=== PATIENT | female | born 1980 | race American Indian/Alaskan Native ===

== ENCOUNTER 2017-03-28 10:40 | Emergency (ER) | payer SELFPAY ==
[2017-03-28 10:47] VITALS: BP 128/84
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
[2017-03-28] MEDS ORDERED: TYLENOL PO ONE (11:55)
[2017-03-28] MEDS ORDERED: MOTRIN PO ONE (15:20)
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
== END 2017-03-28 16:59 | disposition home or self-care (01) ==
LOC: ED 10:40
DX: S06.0X9A Concussion with loss of consciousness of unspecified duration, initial encounter (principal); E11.9 Type 2 diabetes mellitus without complications; W18.39XA Other fall on same level, initial encounter; Y93.89 Activity, other specified; Y99.8 Other external cause status; Y92.89 Other specified places as the place of occurrence of the external cause
CPT/HCPCS: 70450

== ENCOUNTER 2017-12-06 13:11 | Emergency (ER) | payer SELFPAY ==
--- NOTE | 2017-12-06 16:27 | Emergency Department Report ---
ED Abdominal Pain HPI - General Chief Complaint: Abdominal Pain Stated Complaint: BACK/LOWER ABD PAIN Time Seen by Provider: 12/06/17 15:42 Source: patient Mode of arrival: Ambulatory Limitations: No Limitations - History of Present Illness Initial Comments: This is a 37-year-old female here complaining of left lower abdominal pain 2 days. She is also complaining of lower back pain 7 days. Denies any urinary burning frequency or urgency. Denies any vaginal bleeding or discharge. Last menstrual period was 11/12/2017. She has had similar episode in the past prior to her menses. She is complaining of nausea without vomiting and diarrhea on and off for 7 days that she had one episode of loose stool this morning. Pain is 5-10 and crampy to her left lower quadrant of her abdomen. No alleviating or exacerbating factors and pain is intermittent. Denies any shortness of breath or chest pain. MD Complaint: abdominal pain, other (back pain, nausea and diarrhea) Onset/Timin -: days(s) Location: LLQ Radiation: none Migration to: no migration Severity: moderate Severity scale (0 -10): 5 Quality: cramping Consistency: intermittent Improves With: nothing Worsens With: nothing Context: other (unknown) Associated Symptoms: nausea, diarrhea, other (bilateral lower back pain). denies: vomiting, fever, chills, constipation, dysuria, hematemesis, hematochezia, melena, hematuria, anorexia, syncope Treatments Prior to Arrival: other - Related Data LMP Date: 11/12/17 LMP (females 10-50): unknown Home Medications Medication Instructions Recorded Confirmed Last Taken Cetirizine HCl [Zyrtec] 10 mg PO DAILY 03/19/13 03/19/13 03/18/13 22:00 metFORMIN [Glucophage] 500 mg PO BID 03/19/13 03/19/13 03/18/13 19:00 Previous Rx's Medication Instructions Recorded Last Taken Type Cephalexin [Keflex] 500 mg PO BID #14 capsule 03/19/13 Unknown Rx Acetaminophen/Codeine [Tylenol #3] 1 tab PO Q6H PRN #15 tab 09/02/15 Unknown Rx Dibucaine 1% [Nupercainal] 1 applicatio DC TID #1 tube 09/02/15 Unknown Rx Hydrocortisone [Anucort-HC SUPPOS] 25 mg RC BID #10 supp.rect 09/02/15 Unknown Rx Acetaminophen [Tylenol Arthritis] 650 mg PO Q6HR PRN #30 tablet.er 03/28/17 Unknown Rx Ibuprofen [Motrin] 600 mg PO Q8H PRN #30 tablet 03/28/17 Unknown Rx Ciprofloxacin HCl [Ciprofloxacin 500 mg PO Q12H #20 tab 12/06/17 Unknown Rx TAB] Dicyclomine [Bentyl] 40 mg PO Q8H 3 Days #9 tablet 12/06/17 Unknown Rx Promethazine [Phenergan TAB] 25 mg PO Q6HR PRN #12 tab 12/06/17 Unknown Rx Allergies Allergy/AdvReac Type Severity Reaction Status Date / Time No Known Allergies Allergy Verified 12/06/17 13:34 ED Review of Systems ROS: Stated complaint: BACK/LOWER ABD PAIN Other details as noted in HPI Constitutional: denies: chills, fever Eyes: denies: eye pain, eye discharge, vision change ENT: denies: ear pain, throat pain, congestion Respiratory: denies: cough, shortness of breath, SOB with exertion, SOB at rest , stridor, wheezing Cardiovascular: denies: chest pain, palpitations, edema, syncope Gastrointestinal: abdominal pain, nausea, diarrhea. denies: vomiting, constipation, hematemesis, melena, hematochezia Genitourinary: denies: urgency, dysuria, discharge Musculoskeletal: back pain. denies: joint swelling, arthralgia, myalgia Skin: denies: rash, lesions Neurological: denies: headache, weakness, numbness, paresthesias, confusion, abnormal gait, vertigo ED Past Medical Hx - Past Medical History Previous Medical History?: Yes Hx Diabetes: Yes - Surgical History Past Surgical History?: Yes Additional Surgical History: x 3 - Family History Family history: diabetes, hypertension - Social History Smoking Status: Never Smoker Substance Use Type: None - Medications Home Medications: Home Medications Medication Instructions Recorded Confirmed Last Taken Type Cephalexin [Keflex] 500 mg PO BID #14 capsule 03/19/13 Unknown Rx Cetirizine HCl [Zyrtec] 10 mg PO DAILY 03/19/13 03/19/13 03/18/13 22:00 History metFORMIN [Glucophage] 500 mg PO BID 03/19/13 03/19/13 03/18/13 19:00 History Acetaminophen/Codeine [Tylenol #3] 1 tab PO Q6H PRN #15 tab 09/02/15 Unknown Rx Dibucaine 1% [Nupercainal] 1 applicatio DC TID #1 tube 09/02/15 Unknown Rx Hydrocortisone [Anucort-HC SUPPOS] 25 mg RC BID #10 supp.rect 09/02/15 Unknown Rx Acetaminophen [Tylenol Arthritis] 650 mg PO Q6HR PRN #30 tablet.er 03/28/17 Unknown Rx Ibuprofen [Motrin] 600 mg PO Q8H PRN #30 tablet 03/28/17 Unknown Rx Ciprofloxacin HCl [Ciprofloxacin 500 mg PO Q12H #20 tab 12/06/17 Unknown Rx TAB] Dicyclomine [Bentyl] 40 mg PO Q8H 3 Days #9 tablet 12/06/17 Unknown Rx Promethazine [Phenergan TAB] 25 mg PO Q6HR PRN #12 tab 12/06/17 Unknown Rx ED Physical Exam - General Limitations: No Limitations General appearance: alert, in no apparent distress - Head Head exam: Present: atraumatic, normocephalic, normal inspection - Eye Eye exam: Present: normal appearance, PERRL Pupils: Present: normal accommodation - ENT ENT exam: Present: normal exam, normal orophraynx, mucous membranes moist, TM's normal bilaterally, normal external ear exam - Neck Neck exam: Present: normal inspection, full ROM. Absent: tenderness, lymphadenopathy - Respiratory Respiratory exam: Present: normal lung sounds bilaterally. Absent: respiratory distress, chest wall tenderness - Cardiovascular Cardiovascular Exam: Present: regular rate, normal rhythm, normal heart sounds. Absent: systolic murmur, diastolic murmur - GI/Abdominal GI/Abdominal exam: Present: soft, normal bowel sounds. Absent: distended, tenderness, guarding, rebound, rigid, organomegaly, mass, bruit, pulsatile mass - Extremities Exam Extremities exam: Present: normal inspection, full ROM, normal capillary refill , other (no clubbing, cyanosis or edema. +2 pulses to all extremities and no neurovascular compromise). Absent: tenderness, pedal edema, joint swelling, calf tenderness - Back Exam Back exam: Present: normal inspection, full ROM, other (ambulates without any difficulties). Absent: tenderness, CVA tenderness (R), CVA tenderness (L), muscle spasm, paraspinal tenderness, vertebral tenderness, rash noted - Expanded Back Exam Expanded Back exam: Absent: saddle anesthesia Back exam: Negative Straight Leg Raising: Left, Right - Neurological Exam Neurological exam: Present: alert, oriented X3, normal gait, reflexes normal. Absent: motor sensory deficit - Psychiatric Psychiatric exam: Present: normal affect, normal mood - Skin Skin exam: Present: warm, dry, intact, normal color. Absent: rash ED Course Vital Signs 12/06/17 12/06/17 13:24 18:35 Temperature 98 F 98.6 F Pulse Rate 77 60 Respiratory 18 16 Rate Blood Pressure 138/75 Blood Pressure 126/78 [Left] O2 Sat by Pulse 100 99 Oximetry - Reevaluation(s) Reevaluation #1: 12/06/17 17:30 Patient given Zofran 8 mg ODT and Bentyl 40 mg by mouth for abdominal cramping and nausea. She was started on Levaquin 750 mg by mouth for diarrhea 7 days which is on and off. CBC, CMP, lipase and urinalysis is stable. Hemoglobin is 9.7 which is slightly decreased and hematocrit is normal. urine test is negative. 12/06/17 17:47 Reevaluation #2: 12/06/17 17:47 Oral hydration started and patient tolerating well. Reevaluation #3: 12/06/17 18:07 She tolerated oral liquids well. Her pain has resolved. She is stable. ED Medical Decision Making - Lab Data Result diagrams: 12/06/17 16:38 12/06/17 16:38 Lab Results 12/06/17 12/06/17 12/06/17 Range/Units 16:38 16:38 16:41 WBC 9.3 (4.5-11.0) K/mm3 RBC 5.00 (3.65-5.03) M/mm3 Hgb 9.7 L (10.1-14.3) gm/dl Hct 30.5 (30.3-42.9) % MCV 61 L (79-97) fl MCH 19 L (28-32) pg MCHC 32 (30-34) % RDW 20.7 H (13.2-15.2) % Plt Count 272 (140-440) K/mm3 Lymph % (Auto) 36.1 H (13.4-35.0) % Reeves % (Auto) 6.7 (0.0-7.3) % Eos % (Auto) 2.1 (0.0-4.3) % Baso % (Auto) 0.7 (0.0-1.8) % Lymph # 3.3 (1.2-5.4) K/mm3 Reeves # 0.6 (0.0-0.8) K/mm3 Eos # 0.2 (0.0-0.4) K/mm3 Baso # 0.1 (0.0-0.1) K/mm3 Seg Neutrophils % 54.4 (40.0-70.0) % Seg Neutrophils # 5.0 (1.8-7.7) K/mm3 Sodium 139 (137-145) mmol/L Potassium 3.8 (3.6-5.0) mmol/L Chloride 99.9 (98-107) mmol/L Carbon Dioxide 27 (22-30) mmol/L Anion Gap 16 mmol/L BUN 9 (7-17) mg/dL Creatinine 0.5 L (0.7-1.2) mg/dL Estimated GFR > 60 ml/min BUN/Creatinine Ratio 18 % Glucose 90 (65-100) mg/dL POC Glucose 88 (70-105) Calcium 9.6 (8.4-10.2) mg/dL Total Bilirubin 0.30 (0.1-1.2) mg/dL Direct Bilirubin < 0.2 (0-0.2) mg/dL Indirect Bilirubin 0.1 mg/dL AST 22 (5-40) units/L ALT 15 (7-56) units/L Alkaline Phosphatase 84 (35-129) units/L Total Protein 7.7 (6.3-8.2) g/dL Albumin 4.3 (3.9-5) g/dL Albumin/Globulin Ratio 1.3 % Lipase 26 (13-60) units/L Urine Color (Yellow) Urine Turbidity (Clear) Urine pH (5.0-7.0) Ur Specific Prospect (1.003-1.030) Urine Protein (Negative) mg/dL Urine Glucose (UA) (Negative) mg/dL Urine Ketones (Negative) mg/dL Urine Blood (Negative) Urine Nitrite (Negative) Urine Bilirubin (Negative) Urine Urobilinogen (<2.0) mg/dL Ur Leukocyte Esterase (Negative) Urine WBC (Auto) (0.0-6.0) /HPF Urine RBC (Auto) (0.0-6.0) /HPF Urine Mucus /HPF Urine HCG, Qual (Negative) 12/06/17 Range/Units Unknown WBC (4.5-11.0) K/mm3 RBC (3.65-5.03) M/mm3 Hgb (10.1-14.3) gm/dl Hct (30.3-42.9) % MCV (79-97) fl MCH (28-32) pg MCHC (30-34) % RDW (13.2-15.2) % Plt Count (140-440) K/mm3 Lymph % (Auto) (13.4-35.0) % Reeves % (Auto) (0.0-7.3) % Eos % (Auto) (0.0-4.3) % Baso % (Auto) (0.0-1.8) % Lymph # (1.2-5.4) K/mm3 Reeves # (0.0-0.8) K/mm3 Eos # (0.0-0.4) K/mm3 Baso # (0.0-0.1) K/mm3 Seg Neutrophils % (40.0-70.0) % Seg Neutrophils # (1.8-7.7) K/mm3 Sodium (137-145) mmol/L Potassium (3.6-5.0) mmol/L Chloride (98-107) mmol/L Carbon Dioxide (22-30) mmol/L Anion Gap mmol/L BUN (7-17) mg/dL Creatinine (0.7-1.2) mg/dL Estimated GFR ml/min BUN/Creatinine Ratio % Glucose (65-100) mg/dL POC Glucose (70-105) Calcium (8.4-10.2) mg/dL Total Bilirubin (0.1-1.2) mg/dL Direct Bilirubin (0-0.2) mg/dL Indirect Bilirubin mg/dL AST (5-40) units/L ALT (7-56) units/L Alkaline Phosphatase (35-129) units/L Total Protein (6.3-8.2) g/dL Albumin (3.9-5) g/dL Albumin/Globulin Ratio % Lipase (13-60) units/L Urine Color Yellow (Yellow) Urine Turbidity Clear (Clear) Urine pH 5.0 (5.0-7.0) Ur Specific Prospect 1.012 (1.003-1.030) Urine Protein <15 mg/dl (Negative) mg/dL Urine Glucose (UA) Neg (Negative) mg/dL Urine Ketones Neg (Negative) mg/dL Urine Blood Neg (Negative) Urine Nitrite Neg (Negative) Urine Bilirubin Neg (Negative) Urine Urobilinogen < 2.0 (<2.0) mg/dL Ur Leukocyte Esterase Neg (Negative) Urine WBC (Auto) < 1.0 (0.0-6.0) /HPF Urine RBC (Auto) 1.0 (0.0-6.0) /HPF Urine Mucus 1+ /HPF Urine HCG, Qual Negative (Negative) - Medical Decision Making This is a 37-year-old female here report that she has nausea, left lower quadrant abdominal pain, bilateral lower back pain without any fever. She is also reporting that she has diarrhea on and off for 7 days last one was today which was loose. Denies any blood in her stool. Denies any vomiting or throwing up blood. Patient had similar episode in the past and she says she is due to have her menstrual cycle soon. She is here to be evaluated. I saw and examined patient. Physical finances for normal abdominal exam, normal back exam. She was orally challenged emergency room and tolerated 3 cups of juice without any nausea or diarrhea. CBC, CMP, lipase and urinalysis stable. test is negative. Patient is diabetic and her blood glucose was stable. I discussed the patient with diagnosis and laboratory results along with tests and she voices understanding. She is requesting to be referred to primary care and also to [facility]. Pain is controlled in emergency room with medication. Nausea is controlled Abdominal pain, left lower quadrant nonretractable-patient given until 40 mg by mouth and will be sent home on Bentyl Nausea alone-patient given Zofran 8 mg ODT with relief of nausea and will be sent home on and phenergan Diarrhea, episodic-patient will be sent home on ciprofloxacin and she is been having intermittent diarrhea over 7 days. levaquin 750 mg started po in ED Bilateral lower back pain-no pain at present Referral to [facility] for primary care PERRL to [facility] for [facility] and also Dr. Ramos. Patient educated on diagnosis, treatment plan, medication and need to follow- up. She voiced understanding Pt discharged home with prescription for Bentyl, Phenergan and ciprofloxacin I discussed with her that she needs to increase her fluid intake to 2-3 L of liquid to include water and natural juices and avoid carbonated beverages and coffee for 72 hours. I also instructed her to start off with a bland diet to include bananas, rice, applesauce and toast over the next 72 hours and avoid spicy food. Understanding. She is discharged home in stable condition, vital signs are stable she is a febrile. Pain is better in her back and abdomen and she hasn't had any episode of diarrhea in emergency room. I discussed with her if her abdominal pain returns, nausea and vomiting, fever and/or chills, weakness, dizziness to return to the emergency room NOEMÍ. Critical care attestation.: If time is entered above; I have spent that time in minutes in the direct care of this critically ill patient, excluding procedure time. ED Disposition Clinical Impression: Nausea Abdominal pain Qualifiers: Abdominal location: unspecified location Qualified Code(s): R10.9 - Unspecified abdominal pain Diarrhea Qualifiers: Diarrhea type: unspecified type Qualified Code(s): R19.7 - Diarrhea, unspecified Back pain Qualifiers: Back pain location: low back pain Chronicity: acute Back pain laterality: bilateral Sciatica presence: without sciatica Qualified Code(s): M54.5 - Low back pain Disposition: - TO HOME OR SELFCARE Is pt being admited?: No Does the pt Need Aspirin: No Condition: Stable Instructions: Acute Nausea and Vomiting (ED), Acute Diarrhea (ED), Acute Low Back Pain (ED), Abdominal Pain (ED), Nutrition Tips for Relief of Diarrhea (ED) , Core Strengthening Exercises (GEN) Additional Instructions: follow up with [facility] as instructed. This will be Dr. Ramos and she can also follow up at [facility] at [facility]. He can follow up with primary care physician at [facility]. Call tomorrow to schedule an appointment Follow up bland diet such as bananas, rice, applesauce and toast for the next 72 hours and avoid caffeinated beverages and spicy food to allow use stomach lining to heal He experience abdominal pain, back pain, fever and/or chills or nausea or vomiting, dizziness, continuous diarrhea for more than 10 per day, weakness please return to the emergency room Take ciprofloxacin for diarrhea that's been ongoing for 7 days and increase her fluid intake to 2-3 L of water and natural juices daily Phenergan for nausea can cause drowsiness so please do not drive or operate heavy machinery while taking this medication Prescriptions: Ciprofloxacin HCl [Ciprofloxacin TAB] 500 mg PO Q12H #20 tab Dicyclomine [Bentyl] 40 mg PO Q8H 3 Days #9 tablet Promethazine [Phenergan TAB] 25 mg PO Q6HR PRN #12 tab PRN Reason: Nausea Referrals: PRIMARY CAREMD [Primary Care Provider] - 12/09/17 TOM TERAN MD [Staff Physician] - 12/09/17 [facility] [Outside] - 12/09/17 Forms: Work/School Release Form(ED)
[2017-12-06] MEDS ORDERED: ZOFRAN ODT PO ONE (16:32)
[2017-12-06 16:59] LABS: Basophils # (Auto) 0.1 K/mm3 (0.0-0.1); Basophils % (Auto) 0.7 % (0.0-1.8); Eosinophils # (Auto) 0.2 K/mm3 (0.0-0.4); Eosinophils % (Auto) 2.1 % (0.0-4.3); Hematocrit 30.5 % (30.3-42.9); Hemoglobin 9.7 gm/dl (10.1-14.3); Lymphocytes # (Auto) 3.3 K/mm3 (1.2-5.4); Lymphocytes % (Auto) 36.1 % (13.4-35.0); Mean Corpuscular HGB Conc 32 % (30-34); Monocytes # (Auto) 0.6 K/mm3 (0.0-0.8); Monocytes % (Auto) 6.7 % (0.0-7.3); Platelet Count 272 K/mm3 (140-440)
[2017-12-06 17:00] LABS: Mean Corpuscular Hemoglobin 19 pg (28-32); Mean Corpuscular Volume 61 fl (79-97); Red Cell Distribution Width 20.7 % (13.2-15.2)
[2017-12-06] MEDS ORDERED: BENTYL PO ONE (17:00)
[2017-12-06 17:19] LABS: Alanine Aminotransferase 15 units/L (7-56); Albumin 4.3 g/dL (3.9-5); BUN/Creatinine Ratio 18; Blood Urea Nitrogen 9 mg/dL (7-17); Calcium 9.6 mg/dL (8.4-10.2); Hemolysis Index 1; Lipase 26 units/L (13-60)
[2017-12-06 17:22] LABS: Bilirubin,Urine NEG (Negative); Blood,Urine NEG (Negative); Color,Urine Yellow (Yellow); Mucus,Urine 1+ /HPF; Protein,Urine <15 mg/dL mg/dL (Negative); Urobilinogen,Urine < 2.0 mg/dL (<2.0)
[2017-12-06 17:24] LABS: HCG Qualitative,Urine Negative (Negative); WBC,Urine < 1.0 /HPF (0.0-6.0)
[2017-12-06 17:29] LABS: Bilirubin,Direct < 0.2 mg/dL (0-0.2)
[2017-12-06] MEDS ORDERED: LEVAQUIN PO ONE (17:35)
[2017-12-06 18:37] VITALS: BP 126/78
== END 2017-12-06 18:35 | disposition home or self-care (01) ==
LOC: ED 13:11
DX: R10.32 Left lower quadrant pain (principal); R11.0 Nausea; R19.7 Diarrhea, unspecified; M54.5 Low back pain; E11.9 Type 2 diabetes mellitus without complications; Z79.899 Other long term (current) drug therapy
CPT/HCPCS: 36415; 80048; 80074; 81001; 81025; 82962; 83690; 85025; 99283; Q0162

== ENCOUNTER 2018-07-18 12:53 | Observation (INO) | payer MEDICAID ==
[2018-07-18] MEDS ORDERED: NACL 0.9% 1000 ML 1,000 ML IV ONE (13:11)
--- NOTE | 2018-07-18 13:15 | Emergency Department Report ---
Blank Doc - Documentation Documentation: 38 y o female presents for bright red blood in stool today, having abd pain went to pcp was sent to ER for fecal impaction was sent by DR Lopez This initial assessment diagnostic orders/clinical plan/treatment (s) is/Are subject change based on patient's health status, clinical progression and re- assessment by fellow clinical providers in the ED. Further treatment and work-up at subsequent clinical providers discretion. Patient/guardians urged not to elope from their condition may be serious if not clinically assessed and managed. Initial order include: labs ct scan MAin ED evaluate
[2018-07-18 13:48] LABS: Basophils % (Auto) 0.2 % (0.0-1.8); Eosinophils % (Auto) 0.1 % (0.0-4.3); Hematocrit 28.5 % (30.3-42.9); Hemoglobin 9.2 gm/dl (10.1-14.3); Lymphocytes # (Auto) 1.1 K/mm3 (1.2-5.4); Lymphocytes % (Auto) 17.3 % (13.4-35.0); Mean Corpuscular HGB Conc 32 % (30-34); Mean Corpuscular Volume 60 fl (79-97); Monocytes # (Auto) 0.6 K/mm3 (0.0-0.8); Monocytes % (Auto) 8.7 % (0.0-7.3); Platelet Count 251 K/mm3 (140-440); Red Blood Count 4.78 M/mm3 (3.65-5.03)
[2018-07-18 13:49] LABS: Red Cell Distribution Width 20.3 % (13.2-15.2)
[2018-07-18 14:33] LABS: BUN/Creatinine Ratio 14; Blood Urea Nitrogen 7 mg/dL (7-17); Calcium 9.2 mg/dL (8.4-10.2); Hemolysis Index 1
[2018-07-18 14:37] LABS: Bilirubin,Urine NEG (Negative); Blood,Urine LG (Negative); Color,Urine Straw (Yellow); Mucus,Urine FEW /HPF; Protein,Urine <15 mg/dL mg/dL (Negative); Urobilinogen,Urine < 2.0 mg/dL (<2.0); WBC,Urine < 1.0 /HPF (0.0-6.0)
--- NOTE | 2018-07-18 14:50 | Cat Scan Report ---
CT ABDOMEN AND PELVIS WITHOUT CONTRAST INDICATION: Abdominal pain. COMPARISON: None similar. FINDINGS: Noncontrast abdomen and pelvis CT performed. LUNG BASES: Nonspecific distal esophageal wall mild prominence/thickening, not excluded for gastroesophageal reflux and/or hiatal hernia, amongst others. ABDOMEN: Please note that sensitivity to detect small visceral lesions is limited due to the absence of intravenous or oral contrast. However, grossly unremarkable unenhanced liver, spleen, gallbladder, pancreas, adrenals, aorta, IVC and kidneys. No ascites or definite size significant adenopathy, though slight nonspecific swirling at the mesenteric root may be noted as on axial series 2, images 90-105. Nonopacified GI tract evaluation limited, though grossly nonobstructive. Mild colonic stool. Small fat containing umbilical/supraumbilical hernia with a transverse neck of approximately 1.7 cm on axial image 143, series 2. PELVIS: Right lower quadrant demonstrates asymmetric soft tissue rising from the pelvis, predominantly representing the uterus, though with an adjacent 6.6 x 2.8 cm suspected dermoid containing approximately 3 cm eccentric fat as on axial image 136, series 2, amongst others. Left adnexa/ovary appears grossly unremarkable as also non-opacified urinary bladder. Few small pelvic phleboliths. Moderate rectosigmoid stool/impaction noted. No significant free fluid or definite adenopathy. Mild multilevel spinal degenerative changes as lower thoracic spurring and multilevel endplate irregularities. Bilateral SI joint degenerative changes with some sclerosis along iliac aspect on the right also noted. CONCLUSION: Right adnexal/ovarian dermoid in this patient with various other incidental findings on this limited, unenhanced exam, including possible constipation, as described. Please correlate. Thank you for the opportunity to participate in this patient's care.
[2018-07-18] MEDS ORDERED: DILAUDID IV ONE (14:58)
[2018-07-18] MEDS ORDERED: TORADOL IV ONE (14:58)
[2018-07-18] MEDS ORDERED: LIDOCAINE VISCOUS 2% PO ONE (14:58)
--- NOTE | 2018-07-18 15:01 | Emergency Department Report ---
ED General Adult HPI - General Chief complaint: Abdominal Pain Stated complaint: REFERRED BY BODY PAIN/SORE THROAT Time Seen by Provider: 07/18/18 13:07 Source: patient, RN notes reviewed, old records reviewed Mode of arrival: Ambulatory Limitations: No Limitations - History of Present Illness Initial comments: Primary care Dr.: Dr. Eder Trevino Past medical history: Obesity, diabetes This is a 38-year-old female. The patient presents to the emergency room with 2 complaints. The patient's first complaint is sore throat, body aches, headache, malaise, fatigue, myalgias, generalized weakness. Dry cough, positive subjective fever. Symptoms present for 4-5 days. They're intermittent. They do not radiate anywhere. They do not have exacerbating or relieving factors. The patient's second complaint is abdominal cramping and constipation. She reports straining so hard she defecates she had some blood come from her rectum. She denies dysuria, hematuria. She does report that she is currently menstruating. However, this is not one of her complaints. -: Gradual Location: mouth, neck, back, abdomen, left, right, upper extremity, lower extremity Radiation: non-radiation Severity scale (0 -10): 6 Quality: aching Improves with: other Worsens with: other Associated Symptoms: cough, fever/chills, headaches, loss of appetite, malaise, weakness, other (see history of present illness). denies: confusion, chest pain, diaphoresis, shortness of breath, syncope - Related Data Home Medications Medication Instructions Recorded Confirmed Last Taken Cetirizine HCl [Zyrtec] 10 mg PO DAILY 03/19/13 03/19/13 03/18/13 22:00 metFORMIN [Glucophage] 500 mg PO BID 03/19/13 03/19/13 03/18/13 19:00 Previous Rx's Medication Instructions Recorded Last Taken Type cephALEXin [Keflex] 500 mg PO BID #14 capsule 03/19/13 Unknown Rx Acetaminophen/Codeine [Tylenol #3] 1 tab PO Q6H PRN #15 tab 09/02/15 Unknown Rx Dibucaine 1% [Nupercainal] 1 applicatio [place] TID #1 tube 09/02/15 Unknown Rx Hydrocortisone [Anucort-HC SUPPOS] 25 mg RC BID #10 supp.rect 09/02/15 Unknown Rx Acetaminophen [Tylenol Arthritis] 650 mg PO Q6HR PRN #30 tablet.er 03/28/17 Unknown Rx Ibuprofen [Motrin] 600 mg PO Q8H PRN #30 tablet 03/28/17 Unknown Rx Ciprofloxacin HCl [Ciprofloxacin 500 mg PO Q12H #20 tab 12/06/17 Unknown Rx TAB] Dicyclomine [Bentyl] 40 mg PO Q8H 3 Days #9 tablet 12/06/17 Unknown Rx Promethazine [Phenergan TAB] 25 mg PO Q6HR PRN #12 tab 12/06/17 Unknown Rx Acetaminophen [Tylenol Arthritis] 650 mg PO Q6HR PRN #30 tablet.er 07/18/18 Unknown Rx Ibuprofen [Motrin] 600 mg PO Q8H PRN #30 tablet 07/18/18 Unknown Rx Ondansetron [Zofran Odt] 4 mg PO Q8HR PRN #20 tab.rapdis 07/18/18 Unknown Rx Polyethylene Glycol 3350 [Miralax 17 gm PO QDAY #30 packet 07/18/18 Unknown Rx 3350] Allergies Allergy/AdvReac Type Severity Reaction Status Date / Time morphine Allergy Rash Verified 07/18/18 12:58 ED Review of Systems ROS: Stated complaint: REFERRED BY BODY PAIN/SORE THROAT Other details as noted in HPI Constitutional: chills, fever, malaise Eyes: denies: vision change ENT: throat pain. denies: epistaxis Respiratory: cough Cardiovascular: denies: chest pain Gastrointestinal: constipation, hematochezia. denies: hematemesis Genitourinary: other (patient currently menstruating, but this is not a s ymptom). denies: dysuria Musculoskeletal: back pain, arthralgia, myalgia Skin: denies: lesions Neurological: weakness Psychiatric: anxiety ED Past Medical Hx - Past Medical History Hx Diabetes: Yes - Surgical History Additional Surgical History: x 3 - Social History Smoking Status: Never Smoker Substance Use Type: None - Medications Home Medications: Home Medications Medication Instructions Recorded Confirmed Last Taken Type Cetirizine HCl [Zyrtec] 10 mg PO DAILY 03/19/13 03/19/13 03/18/13 22:00 History cephALEXin [Keflex] 500 mg PO BID #14 capsule 03/19/13 Unknown Rx metFORMIN [Glucophage] 500 mg PO BID 03/19/13 03/19/13 03/18/13 19:00 History Acetaminophen/Codeine [Tylenol #3] 1 tab PO Q6H PRN #15 tab 09/02/15 Unknown Rx Dibucaine 1% [Nupercainal] 1 applicatio [place] TID #1 tube 09/02/15 Unknown Rx Hydrocortisone [Anucort-HC SUPPOS] 25 mg RC BID #10 supp.rect 09/02/15 Unknown Rx Acetaminophen [Tylenol Arthritis] 650 mg PO Q6HR PRN #30 tablet.er 03/28/17 Unknown Rx Ibuprofen [Motrin] 600 mg PO Q8H PRN #30 tablet 03/28/17 Unknown Rx Ciprofloxacin HCl [Ciprofloxacin 500 mg PO Q12H #20 tab 12/06/17 Unknown Rx TAB] Dicyclomine [Bentyl] 40 mg PO Q8H 3 Days #9 tablet 12/06/17 Unknown Rx Promethazine [Phenergan TAB] 25 mg PO Q6HR PRN #12 tab 12/06/17 Unknown Rx Acetaminophen [Tylenol Arthritis] 650 mg PO Q6HR PRN #30 tablet.er 07/18/18 Unknown Rx Ibuprofen [Motrin] 600 mg PO Q8H PRN #30 tablet 07/18/18 Unknown Rx Ondansetron [Zofran Odt] 4 mg PO Q8HR PRN #20 tab.rapdis 07/18/18 Unknown Rx Polyethylene Glycol 3350 [Miralax 17 gm PO QDAY #30 packet 07/18/18 Unknown Rx 3350] ED Physical Exam - General Limitations: No Limitations General appearance: alert, in distress, obese - Head Head exam: Present: atraumatic, normocephalic - Eye Eye exam: Present: normal appearance, EOMI. Absent: conjunctival injection - ENT ENT exam: Present: mucous membranes moist, normal external ear exam, other (when exudates noted on tonsillar pillars). Absent: normal orophraynx - Neck Neck exam: Present: normal inspection, full ROM, lymphadenopathy. Absent: tenderness, meningismus - Respiratory Respiratory exam: Present: normal lung sounds bilaterally. Absent: respiratory distress - Cardiovascular Cardiovascular Exam: Present: normal rhythm, tachycardia, normal heart sounds. Absent: systolic murmur, diastolic murmur, rubs, gallop - GI/Abdominal GI/Abdominal exam: Present: soft. Absent: distended, tenderness, guarding, rebound, rigid, pulsatile mass - Rectal Rectal exam: Present: normal inspection, normal rectal tone, heme (+) stool, fecal impaction, other (Brown stool, trace guaiac positive, chaperoned by nurse John burch) - Extremities Exam Extremities exam: Present: normal inspection, full ROM, other (2+ pulses noted in the bilateral upper, lower extremities. Compartments soft. No long bony tenderness. The pelvis is stable.). Absent: pedal edema, joint swelling, calf tenderness - Back Exam Back exam: Present: normal inspection, full ROM. Absent: tenderness, CVA tenderness (R), paraspinal tenderness, vertebral tenderness - Neurological Exam Neurological exam: Present: alert, oriented X3, CN II-XII intact, normal gait, other (Extraocular movements intact. Tongue midline. No facial droop. Facial sensation intact to light touch in the V1, V2, V3 distribution bilaterally. 5 and 5 strength in 4 extremities.. Sensation is intact to light touch in 4 extr emities.). Absent: motor sensory deficit - Psychiatric Psychiatric exam: Present: anxious - Skin Skin exam: Present: warm, dry, intact, normal color. Absent: rash ED Course Vital Signs 07/18/18 07/18/18 07/18/18 13:09 15:22 15:26 Temperature 98.2 F Pulse Rate 114 H Respiratory 20 18 18 Rate Blood Pressure 133/87 O2 Sat by Pulse 99 Oximetry - Reevaluation(s) Reevaluation #1: 07/18/18 16:11 Differential diagnosis, including not limited to: Influenza, influenza-like illness, viral pharyngitis, strep pharyngitis, constipation, fecal impaction Assessment and plan: 38-year-old female with 2 complaints. Complaint #1, viral syndrome, present 4-5 days, does not have any significant medical comorbidities, not hypoxic, no utility at this point for Tamiflu, moderate risk by [facility] criteria, we will treat her symptoms symptomatically and supportively, and obtain a strep screen. Patient protecting her airway at this time, with no stridor or dysphonia. Complaint #2: Constipation; confirmed on CT scan, confirmed on physical examination, likely fecal impaction. We will treat her pain, she reports only itching to morphine, but no true anaphylaxis or anaphylactoid symptoms, and nursing team is going to perform a soapsuds enema. We will reassess after her initial data points. Reevaluation #2: 07/18/18 18:32 Soap suds enema not successful. Patient endorsed passing some fluid, and some bloody flatus, but was unable to have a bowel movement. Manual disimpaction was attempted during her initial physical exam, and was not successful. Lactulose ordered, GoLYTELY ordered. Discussed with gastroenterology, Dr. Tarango, who agreed with the aforementioned, and indicated his group could follow in consultation. Patient will be admitted to the medical service for further management. Dr Maldonado accepts to his service ED Medical Decision Making - Lab Data Result diagrams: 07/18/18 13:27 07/18/18 13:32 Vital Signs 07/18/18 07/18/18 07/18/18 13:09 15:22 15:26 Temperature 98.2 F Pulse Rate 114 H Respiratory 20 18 18 Rate Blood Pressure 133/87 O2 Sat by Pulse 99 Oximetry Labs 07/18/18 07/18/18 07/18/18 13:27 13:27 13:27 WBC 6.4 RBC 4.78 Hgb 9.2 L Hct 28.5 L MCV 60 L MCH 19 L MCHC 32 RDW 20.3 H Plt Count 251 Lymph % (Auto) 17.3 [place] % (Auto) 8.7 H Eos % (Auto) 0.1 Baso % (Auto) 0.2 Lymph # 1.1 L [place] # 0.6 Eos # 0.0 Baso # 0.0 Seg Neutrophils % 73.7 H Seg Neutrophils # 4.7 PT 13.8 INR 1.00 Sodium Potassium Chloride Carbon Dioxide Anion Gap BUN Creatinine Estimated GFR BUN/Creatinine Ratio Glucose Lactic Acid Calcium Magnesium Total Creatine Kinase HCG, Qual Negative Urine Color Urine Turbidity Urine pH Ur Specific [place] Urine Protein Urine Glucose (UA) Urine Ketones Urine Blood Urine Nitrite Urine Bilirubin Urine Urobilinogen Ur Leukocyte Esterase Urine WBC (Auto) Urine RBC (Auto) Urine Mucus Blood Type Antibody Screen 07/18/18 07/18/18 07/18/18 13:27 13:27 13:32 WBC RBC Hgb Hct MCV MCH MCHC RDW Plt Count Lymph % (Auto) [place] % (Auto) Eos % (Auto) Baso % (Auto) Lymph # [place] # Eos # Baso # Seg Neutrophils % Seg Neutrophils # PT INR Sodium 141 Potassium 3.9 Chloride 100.8 Carbon Dioxide 27 Anion Gap 17 BUN 7 Creatinine 0.5 L Estimated GFR > 60 BUN/Creatinine Ratio 14 Glucose 142 H Lactic Acid 1.20 Calcium 9.2 Magnesium Total Creatine Kinase HCG, Qual Urine Color Urine Turbidity Urine pH Ur Specific [place] Urine Protein Urine Glucose (UA) Urine Ketones Urine Blood Urine Nitrite Urine Bilirubin Urine Urobilinogen Ur Leukocyte Esterase Urine WBC (Auto) Urine RBC (Auto) Urine Mucus Blood Type A POSITIVE Antibody Screen Negative 07/18/18 07/18/18 13:32 14:02 WBC RBC Hgb Hct MCV MCH MCHC RDW Plt Count Lymph % (Auto) [place] % (Auto) Eos % (Auto) Baso % (Auto) Lymph # [place] # Eos # Baso # Seg Neutrophils % Seg Neutrophils # PT INR Sodium Potassium Chloride Carbon Dioxide Anion Gap BUN Creatinine Estimated GFR BUN/Creatinine Ratio Glucose Lactic Acid Calcium Magnesium 1.80 Total Creatine Kinase 102 HCG, Qual Urine Color Straw Urine Turbidity Clear Urine pH 7.0 Ur Specific [place] 1.003 Urine Protein <15 mg/dl Urine Glucose (UA) Neg Urine Ketones Neg Urine Blood Lg Urine Nitrite Neg Urine Bilirubin Neg Urine Urobilinogen < 2.0 Ur Leukocyte Esterase Neg Urine WBC (Auto) < 1.0 Urine RBC (Auto) 6.0 Urine Mucus Few Blood Type Antibody Screen - Radiology Data Radiology results: report reviewed, image reviewed Referring Physician: ANNE BLAKE Patient Name: ALEXANDRA RIZO Date of : 1980 Sex: Female Report Date: 2018-07-18 Report Status: Finalized [address] [address] Cat Scan Report Signed Patient: ALEXANDRA RIZO MR#: [id number] : 1980 Acct:[id number] Age/Sex: 38 / F ADM Date: 07/18/18 Loc: ED Attending Dr: Ordering Physician: KARY SMITH Date of Service: 07/18/18 Procedure(s): CT abdomen pelvis wo con Accession Number(s): [id number] cc: KARY SMITH CT ABDOMEN AND PELVIS WITHOUT CONTRAST INDICATION: Abdominal pain. COMPARISON: None similar. FINDINGS: Noncontrast abdomen and pelvis CT performed. LUNG BASES: Nonspecific distal esophageal wall mild prominence/thickening, not excluded for gastroesophageal reflux and/or hiatal hernia, amongst others. ABDOMEN: Please note that sensitivity to detect small visceral lesions is limited due to the absence of intravenous or oral contrast. However, grossly unremarkable unenhanced liver, spleen, gallbladder, pancreas, adrenals, aorta, IVC and kidneys. No ascites or definite size significant adenopathy, though slight nonspecific swirling at the mesenteric root may be noted as on axial series 2, images 90-105. Nonopacified GI tract evaluation limited, though grossly nonobstructive. Mild colonic stool. Small fat containing umbilica l/supraumbilical hernia with a transverse neck of approximately 1.7 cm on axial image 143, series 2. PELVIS: Right lower quadrant demonstrates asymmetric soft tissue rising from the pelvis, predominantly representing the uterus, though with an adjacent 6.6 x 2.8 cm suspected dermoid containing approximately 3 cm eccentric fat as on axial image 136, series 2, amongst others. Left adnexa/ovary appears grossly unremarkable as also non-opacified urinary bladder. Few small pelvic phleboliths. Moderate rectosigmoid stool/impaction noted. No significant free fluid or definite adenopathy. Mild multilevel spinal degenerative changes as lower thoracic spurring and multilevel endplate irregularities. Bilateral SI joint degenerative changes with some sclerosis along iliac aspect on the right also noted. CONCLUSION: Right adnexal/ovarian dermoid in this patient with various other incidental findings on this limited, unenhanced exam, including possible constipation, as described. Please correlate. Thank you for the opportunity to participate in this patient's care. Transcribed By: RS Dictated By: VANESA ROBERTS MD Electronically Authenticated By: VANESA ROBERTS MD Signed Date/Time: 07/18/181449 DD/ 37 TD/TT: 07/18/18 145 Critical care attestation.: If time is entered above; I have spent that time in minutes in the direct care of this critically ill patient, excluding procedure time. ED Disposition Clinical Impression: Pharyngitis, Fecal impaction Disposition: OP ADMIT IP TO THIS HOSP Is pt being admited?: Yes Condition: Good Instructions: Constipation (ED), Pharyngitis (ED), High Fiber Diet (ED) Additional Instructions: Cultures were sent today, and results will be available in the next 3-5 days. Please have a primary care doctor contact the medical records department to obtain culture results. Increased consumption of water to 6-8 cups of water per day, and eat plenty of fruits, fibers, vegetables. Take the nausea medication as needed, constipation medication as directed, and follow up with the primary care doctor, or litigation examiner for constipation, fecal impaction, reported lower GI bleeding, within the next month. Return to the emergency room right away with new pain, worsened pain, migration of pain, projectile vomiting, change in mental status, confusion, inability to tolerate liquid feeds, inability to speak, it, worsened or different symptoms. Prescriptions: Acetaminophen [Tylenol Arthritis] 650 mg PO Q6HR PRN #30 tablet.er PRN Reason: Pain Ibuprofen [Motrin] 600 mg PO Q8H PRN #30 tablet PRN Reason: Pain Ondansetron [Zofran Odt] 4 mg PO Q8HR PRN #20 tab.rapdis PRN Reason: Nausea Polyethylene Glycol 3350 [Miralax 3350] 17 gm PO QDAY #30 packet Referrals: [facility] [Provider Group] - 3-5 Days [facility] [Provider Group] - 3-5 Days
[2018-07-18] MEDS ORDERED: CEPHULAC PR STA (18:15)
[2018-07-18] MEDS ORDERED: SUBLIMAZE IV ONE (18:39)
[2018-07-18] MEDS ORDERED: GOLYTELY PO ONE (20:00)
[2018-07-18] MEDS ORDERED: SUBLIMAZE ONE (21:10)
[2018-07-19] MEDS ORDERED: NON-FORMULARY (Acetaminophen [Tylenol Arthritis] 650 MG) PO PRN (00:19)
[2018-07-19] MEDS ORDERED: TYLENOL PO PRN (00:29)
[2018-07-19] MEDS: BENTYL PO SCH ×3 (01:00→17:15)
--- NOTE | 2018-07-19 07:26 | Event Note ---
Date: 07/18/18 See dictated H/p inreports Severe constipation
--- NOTE | 2018-07-19 08:51 | History and Physical Report ---
CHIEF COMPLAINT: Has severe abdominal pain for 2 days. HISTORY OF PRESENT ILLNESS: A 38-year-old -[place] female, who comes in for severe abdominal pain. The patient attributes to severe constipation and slight blood from her rectum when she was trying to defecate hard. The patient is also menstruating currently. The patient is on codeine for back pain, which may be causing her constipation. PAST MEDICAL HISTORY: Significant for diabetes. PAST SURGICAL HISTORY: x 3. SOCIAL HISTORY: Does not smoke. FAMILY HISTORY: Hypertension. CURRENT MEDICATIONS: Metformin 500 b.i.d., Tylenol with codeine t.i.d. #3. The patient is also on MiraLax once a day. REVIEW OF SYSTEMS: Significant for abdominal cramping and severe constipation. Otherwise, review of systems is negative. PHYSICAL EXAMINATION: GENERAL: Young female, cooperative during examination. VITAL SIGNS: Blood pressure is 123/73, temperature is 98.3, pulse 83, respirations 18. Sats are 99%. HEENT: Unremarkable. Pupils equal and reactive. NECK: Supple, no lymphadenopathy, no thyromegaly. LUNGS: Clear to auscultation and percussion. Good air entry. CARDIOVASCULAR: S1, S2 heard. No gallop, no murmur, no rub. Apical impulse in left fifth intercostal space and midclavicular line. ABDOMEN: Soft and benign. No hepatosplenomegaly. No guarding, no rigidity. Hernial orifices are normal. EXTREMITIES: Good pedal pulses. No pedal edema. CENTRAL NERVOUS SYSTEM: Alert and oriented x 4, nonfocal exam. SKIN: Normal. LABORATORY DATA: Abdominal CAT scan shows ovarian dermoid and constipation. Labs are significant for white count of 6400, H and H of 9.2 and 28.5, platelet count of 251,000. Electrolytes are normal. Glucose is 142. Urine is normal. ASSESSMENT AND PLAN: 1. Severe constipation. The patient was given multiple laxatives including lactulose with no results. We will observe for overnight and the send her for Gastrografin enema if she does not have any results. GI consult requested. 2. Type 2 diabetes. Continue coverage and metformin. 3. Chronic pain. We will hold the Tylenol with codeine. 4. Deep venous thrombosis prophylaxis, Lovenox 40 mg subcutaneous daily and gastrointestinal prophylaxis. JOB# [id number] RUTHIE/VICKEY KEYS
[2018-07-19] MEDS: HumaLOG SUB-Q SCH ×3 (10:26→17:15)
[2018-07-19] MEDS: MIRALAX 3350 PO SCH ×2 (10:29→15:32)
--- NOTE | 2018-07-19 10:33 | Gastroenterology Consultation ---
History of Present Illness - Reason for Consult Consult date: 07/19/18 Fecal impaction Requesting physician: IRAIS SALINAS - History of Present Illness Ms Grover is a 38 yo aaf who presents with URI and abdominal pain/constipation. pt reports having URI for the past 1 week. She initially took ibuprofen but then was prescribed percocet due to throat pain for which she was taking for 3 days prior to arrival. She presented with constipation and abdominal cramping and found to have fecal impaction in ED. Manual disimpaction was unsuccessful by ED attending and pt was admitted for further management. Pt denies prior h/o constipation until recent episode after taking pain meds. NO known family h/o colon cancer and denies gi bleeding. Past History Past Medical History: No medical history Past Surgical History: No surgical history Social history: no significant social history Family history: no significant family history Medications and Allergies Allergies Allergy/AdvReac Type Severity Reaction Status Date / Time morphine Allergy Rash Verified 07/18/18 12:58 Home Medications Medication Instructions Recorded Confirmed Last Taken Type Cetirizine HCl [Zyrtec] 10 mg PO DAILY 03/19/13 03/19/13 03/18/13 22:00 History cephALEXin [Keflex] 500 mg PO BID #14 capsule 03/19/13 Unknown Rx metFORMIN [Glucophage] 500 mg PO BID 03/19/13 03/19/13 03/18/13 19:00 History Acetaminophen/Codeine [Tylenol #3] 1 tab PO Q6H PRN #15 tab 09/02/15 Unknown Rx Dibucaine 1% [Nupercainal] 1 applicatio OR TID #1 tube 09/02/15 Unknown Rx Hydrocortisone [Anucort-HC SUPPOS] 25 mg RC BID #10 supp.rect 09/02/15 Unknown Rx Acetaminophen [Tylenol Arthritis] 650 mg PO Q6HR PRN #30 tablet.er 03/28/17 Unknown Rx Ibuprofen [Motrin] 600 mg PO Q8H PRN #30 tablet 03/28/17 Unknown Rx Ciprofloxacin HCl [Ciprofloxacin 500 mg PO Q12H #20 tab 12/06/17 Unknown Rx TAB] Dicyclomine [Bentyl] 40 mg PO Q8H 3 Days #9 tablet 12/06/17 Unknown Rx Promethazine [Phenergan TAB] 25 mg PO Q6HR PRN #12 tab 12/06/17 Unknown Rx Acetaminophen [Tylenol Arthritis] 650 mg PO Q6HR PRN #30 tablet.er 07/18/18 Unknown Rx Ibuprofen [Motrin] 600 mg PO Q8H PRN #30 tablet 07/18/18 Unknown Rx Ondansetron [Zofran Odt] 4 mg PO Q8HR PRN #20 tab.rapdis 07/18/18 Unknown Rx Polyethylene Glycol 3350 [Miralax 17 gm PO QDAY #30 packet 07/18/18 Unknown Rx 3350] Active Meds: Active Medications Acetaminophen (Tylenol) 650 mg PO Q6H PRN PRN Reason: Pain, Mild (1-3) Dicyclomine HCl (Bentyl) 40 mg PO Q8H LYN Last Admin: 07/19/18 10:26 Dose: Not Given Documented by: Enoxaparin Sodium (Lovenox) 40 mg SUB-Q QDAY@2200 LYN Insulin Human Lispro (Humalog) 0 unit SUB-Q Q6HR LYN; Protocol Last Admin: 07/19/18 10:26 Dose: 2 unit Documented by: Polyethylene Glycol (Miralax 3350) 17 gm PO BID LYN Stop: 07/20/18 10:01 Reviewed/updated patient's home and current medications Review of Systems - Review of Systems All systems: negative (per HPI) Exam - Constitutional Vital Signs: Temp Pulse Resp BP Pulse Ox 98.3 F 80 18 121/78 97 07/19/18 05:47 07/19/18 05:47 07/19/18 05:47 07/19/18 05:47 07/19/18 05:47 General appearance: no acute distress, obese - EENT Eyes: PERRL, EOM intact ENT: hearing intact - Neck Neck: supple - Respiratory Respiratory effort: normal Respiratory: bilateral: CTA - Cardiovascular Rhythm: regular Heart Sounds: Present: S1 & S2 Extremities: No edema, Full ROM - Gastrointestinal General gastrointestinal: Present: soft, non-tender, non-distended - Neurologic Neurological: alert and oriented x3 - Psychiatric Psychiatric: appropriate mood/affect - Labs CBC & Chem 7: 07/18/18 13:27 07/18/18 13:32 Lab Results: Laboratory Results - last 24 hr 07/18/18 07/18/18 07/18/18 13:27 13:27 13:27 WBC 6.4 RBC 4.78 Hgb 9.2 L Hct 28.5 L MCV 60 L MCH 19 L MCHC 32 RDW 20.3 H Plt Count 251 Lymph % (Auto) 17.3 Piatt % (Auto) 8.7 H Eos % (Auto) 0.1 Baso % (Auto) 0.2 Lymph # 1.1 L Piatt # 0.6 Eos # 0.0 Baso # 0.0 Seg Neutrophils % 73.7 H Seg Neutrophils # 4.7 PT 13.8 INR 1.00 Sodium Potassium Chloride Carbon Dioxide Anion Gap BUN Creatinine Estimated GFR BUN/Creatinine Ratio Glucose POC Glucose Lactic Acid Calcium Magnesium Total Creatine Kinase HCG, Qual Negative Urine Color Urine Turbidity Urine pH Ur Specific [place] Urine Protein Urine Glucose (UA) Urine Ketones Urine Blood Urine Nitrite Urine Bilirubin Urine Urobilinogen Ur Leukocyte Esterase Urine WBC (Auto) Urine RBC (Auto) Urine Mucus Group A Strep Rapid Blood Type Antibody Screen 07/18/18 07/18/18 07/18/18 13:27 13:27 13:32 WBC RBC Hgb Hct MCV MCH MCHC RDW Plt Count Lymph % (Auto) Piatt % (Auto) Eos % (Auto) Baso % (Auto) Lymph # Piatt # Eos # Baso # Seg Neutrophils % Seg Neutrophils # PT INR Sodium 141 Potassium 3.9 Chloride 100.8 Carbon Dioxide 27 Anion Gap 17 BUN 7 Creatinine 0.5 L Estimated GFR > 60 BUN/Creatinine Ratio 14 Glucose 142 H POC Glucose Lactic Acid 1.20 Calcium 9.2 Magnesium Total Creatine Kinase HCG, Qual Urine Color Urine Turbidity Urine pH Ur Specific [place] Urine Protein Urine Glucose (UA) Urine Ketones Urine Blood Urine Nitrite Urine Bilirubin Urine Urobilinogen Ur Leukocyte Esterase Urine WBC (Auto) Urine RBC (Auto) Urine Mucus Group A Strep Rapid Blood Type A POSITIVE Antibody Screen Negative 07/18/18 07/18/18 07/18/18 13:32 14:02 15:30 WBC RBC Hgb Hct MCV MCH MCHC RDW Plt Count Lymph % (Auto) Piatt % (Auto) Eos % (Auto) Baso % (Auto) Lymph # Piatt # Eos # Baso # Seg Neutrophils % Seg Neutrophils # PT INR Sodium Potassium Chloride Carbon Dioxide Anion Gap BUN Creatinine Estimated GFR BUN/Creatinine Ratio Glucose POC Glucose Lactic Acid Calcium Magnesium 1.80 Total Creatine Kinase 102 HCG, Qual Urine Color Straw Urine Turbidity Clear Urine pH 7.0 Ur Specific [place] 1.003 Urine Protein <15 mg/dl Urine Glucose (UA) Neg Urine Ketones Neg Urine Blood Lg Urine Nitrite Neg Urine Bilirubin Neg Urine Urobilinogen < 2.0 Ur Leukocyte Esterase Neg Urine WBC (Auto) < 1.0 Urine RBC (Auto) 6.0 Urine Mucus Few Group A Strep Rapid Negative Blood Type Antibody Screen 07/19/18 08:59 WBC RBC Hgb Hct MCV MCH MCHC RDW Plt Count Lymph % (Auto) Piatt % (Auto) Eos % (Auto) Baso % (Auto) Lymph # Piatt # Eos # Baso # Seg Neutrophils % Seg Neutrophils # PT INR Sodium Potassium Chloride Carbon Dioxide Anion Gap BUN Creatinine Estimated GFR BUN/Creatinine Ratio Glucose POC Glucose 153 H Lactic Acid Calcium Magnesium Total Creatine Kinase HCG, Qual Urine Color Urine Turbidity Urine pH Ur Specific [place] Urine Protein Urine Glucose (UA) Urine Ketones Urine Blood Urine Nitrite Urine Bilirubin Urine Urobilinogen Ur Leukocyte Esterase Urine WBC (Auto) Urine RBC (Auto) Urine Mucus Group A Strep Rapid Blood Type Antibody Screen - Imaging CT Scan: report reviewed Assessment and Plan 1. Fecal impaction/constipation - given golytely prep overnight and has had resolvement of fecal impaction; having multiple bm's with improved abd discomfort 2. Anemia - microcytic, chronic. no overt gi bleeding. suspect due to menstrual blood loss; f/u in GI clinic after discharge for further evaluation as needed -avoid narcotics -bowel regimen daily Will sign off, please call as needed or with questions.
--- NOTE | 2018-07-19 12:16 | Discharge Summary ---
Providers - Providers Date of Admission: 07/18/18 18:33 Date of discharge: 07/19/18 Attending physician: IRAIS SALINAS 07/18/18 18:13 Consult to Physician [CONS] Urgent Comment: DR [place] ARTHUR NOTIIFIED [id number] Consulting Provider: JANNETTE GOSS Physician Instructions: Reason For Exam: fecal impaction Primary care physician: [facility], Hospitalization Condition: Fair Hospital course: Patient is 38 -year-old with history of diabetes and morbid obesity. She presented to ED because of abdominal pain and severe constipation. She was evaluated in Emergency Departments and a CT abdomen showed severe constipation. She was given several laxatives with no effect , so was admitted for evaluation. By following day patient evaluated by GI Physician. With lactulose and Golytely, she eventually had a bowel movement and GI physician recommended discharge home to follow as an outpatient. She was also discharged on Tamiflu for possible flu even though Influenza A and B were negative. Disposition: TO HOME OR SELFCARE - Discharge Diagnoses (1) Diabetes mellitus type 2 in obese Status: Acute (2) Fecal impaction Status: Acute (3) Morbid obesity with BMI of 40.0-44.9, adult Status: Acute Core Measure Documentation - Palliative Care Palliative Care/ Comfort Measures: Not Applicable - Core Measures Any of the following diagnoses?: none Exam - Constitutional Vitals: Temp Pulse Resp BP Pulse Ox 98.3 F 80 18 121/78 97 07/19/18 05:47 07/19/18 05:47 07/19/18 05:47 07/19/18 05:47 07/19/18 05:47 Plan Activity: no restrictions Diet: low fat, low cholesterol, low salt, diabetic Additional Instructions: 1.Follow up with [facility] in 3-5 days Follow up with: [facility] [Provider Group] - 3-5 Days Prescriptions: Dextromethorphan/Benzocaine [Cepacol Sorethroat-Cough Porsche] 1 each PO Q6H PRN #20 lozenge PRN Reason: Sore Throat Oseltamivir [Tamiflu] 75 mg PO BID #9 capsule
[2018-07-19] MEDS ORDERED: TAMIFLU PO SCH (13:00)
[2018-07-19 18:00] VITALS: BP 101/59
[2018-07-19] MEDS ORDERED: LOVENOX SUB-Q SCH (22:00)
== END 2018-07-19 19:03 | disposition home or self-care (01) ==
LOC: ED 12:53 → 3A 18:33
PROVIDERS: ADMIT Internal Medicine; ATTEND Internal Medicine
DX: K59.00 Constipation, unspecified (principal); E11.9 Type 2 diabetes mellitus without complications; G89.29 Other chronic pain; Z79.899 Other long term (current) drug therapy; Z88.8 Allergy status to other drugs, medicaments and biological substances
CPT/HCPCS: 36415; 74176; 80048; 81001; 82140; 82550; 82962; 83735; 84703; 85025; 85610; 86850; 86900; 86901; 87116; 87400; 87430; 96372; 96374; 96375; 99284; G0378; J1170; J1885; J3010; J7030; J1815

== ENCOUNTER 2018-09-11 11:16 | Outpatient (CLI) | payer MEDICAID ==
--- NOTE | 2018-09-11 14:33 | Ultrasound Report ---
TRANSABDOMINAL AND TRANSVAGINAL PELVIC ULTRASOUND: 09/11/18 11:16:00 CLINICAL: Pelvic pain. FINDINGS: Transabdominal and transvaginal pelvic ultrasound demonstrated an enlarged uterus measuring 15.6 x 7.3 x 9.0 cm. Uterus deviates to the right of midline. The myometrium is diffusely heterogeneous with a suggestion of numerous tiny leiomyomata. However, no measurable fibroids. A normal proliferative endometrium measures 8.2 mm AP thickness. Mild fluid in the endocervical canal. The right ovary is enlarged and measures 8.6 x 5.0 x 6.3cm. an oval heterogeneous hyperechoic mass of the ovary measures 4.6 x 3.5 x 3.2 cm and a cyst of the ovary measures 3.3 x 1.3 x 2.4 cm. The hyperechoic mass correlates with the 3 cm fatty mass identified on CT. Normal left ovary The left ovary measures 3.1 x 1.7 x 3.0cm. No adnexal mass. No free fluid. Normal urinary bladder. IMPRESSION: 1. Uterine leiomyomata with uterine enlargement but no measurable fibroid. 2. Normal endometrium. 3. Abnormal right ovary with a 4.6 cm hyperechoic mass and a 3.3 cm cyst. Both of these may be part of a mature cystic teratoma (dermoid cyst) of the right ovary. 4. Normal left ovary.
== END 2018-09-11 11:17 | disposition home or self-care (01) ==
LOC: SPVWC 11:16
PROVIDERS: ATTEND Obstetrics & Gynecology
DX: D25.9 Leiomyoma of uterus, unspecified (principal); N85.2 Hypertrophy of uterus; E11.69 Type 2 diabetes mellitus with other specified complication; E66.01 Morbid (severe) obesity due to excess calories
CPT/HCPCS: 76830; 76856

== ENCOUNTER 2018-11-05 07:07 | Day surgery (SDC) | payer MEDICAID ==
--- NOTE | 2018-11-05 02:52 | History and Physical Report ---
History of Present Illness Date of examination: 11/03/18 Chief complaint: pelvic pain, ovarian cyst History of present illness: Pt is a 38 year old female who presents with a one year history of worsening pelvic pain and findings consistent with a right dermoid cyst on ultrasound. She desires surgical management. Past History Past Medical History: diabetes, other (rectus diastasis) Past Surgical History: section (x 3 ), D&C [employer] History: fibroids Family/Genetic History: diabetes Social history: no significant social history Medications and Allergies Allergies Allergy/AdvReac Type Severity Reaction Status Date / Time morphine Allergy Rash Verified 07/18/18 12:58 Home Medications Medication Instructions Recorded Confirmed Last Taken Type Cetirizine HCl [Zyrtec] 10 mg PO DAILY 03/19/13 10/29/18 03/18/13 22:00 History metFORMIN [Glucophage] 850 mg PO QAM 03/19/13 10/29/18 07/17/18 19:00 History Metformin HCl [metFORMIN] 1,000 mg PO QHS 10/29/18 10/29/18 Unknown History Review of Systems All systems: negative - Physical Exam Breasts: Positive: deferred Cardiovascular: Regular rate Lungs: Positive: Clear to auscultation Abdomen: Positive: soft (obese ) Extremities: Positive: normal Results All other labs normal. Assessment and Plan A: Chronic Pelvic Pain Right Dermoid Cyst Obesity Diabetes P: Proceed with laparoscopic right ovarian cystectomy, possible right oophorectomy, possible laparotomy and other indicated procedures.
[~2018-11-05 07:07] MED LIST: NACL 0.9% 1000 ML 1,000 ML IV SCH; ceFAZolin 3 GM in NACL 0.9% 100 ML IV NR
[2018-11-05] MEDS ORDERED: XYLOCAINE MPF 2% ONE (07:17)
[2018-11-05] MEDS ORDERED: SUBLIMAZE ONE ×2 (07:17→09:55)
[2018-11-05] MEDS ORDERED: DIPRIVAN 10 MG/ML IV ONE (07:17)
[2018-11-05] MEDS ORDERED: ZEMURON IV ONE (07:17)
--- NOTE | 2018-11-05 07:54 | Anesthesia Consultation ---
Anesthesia Consult and Med Hx Date of service: 11/05/18 - Airway Anesthetic Teeth Evaluation: Good ROM Head & Neck: Adequate Mental/Hyoid Distance: Adequate Mallampati Class: Class II Intubation Access Assessment: Probably Good - Pulmonary Exam CTA: Yes - Cardiac Exam Cardiac Exam: RRR - Pre-Operative Health Status ASA Pre-Surgery Classification: ASA3 Proposed Anesthetic Plan: General - Pulmonary Hx Smoking: No Hx Respiratory Symptoms: No Hx Sleep Apnea: No (TERRI PRE SCREEN LOW RISK) - Cardiovascular System Hx Hypertension: No Hx Heart Attack/AMI: No Hx Percutaneous Transluminal Coronary Angioplasty (PTCA): No Hx Cardia Arrhythmia: No - Central Nervous System CVA: No Hx Back Pain: Yes - Gastrointestinal Hx Gastroesophageal Reflux Disease: Yes - Endocrine Hx Renal Disease: No Hx Liver Disease: No Hx Non-Insulin Dependent Diabetes: Yes Hx Thyroid Disease: No - Hematic Hx Anemia: Yes (patient reports Hb 8.8 on lab work this week.) - Other Systems Hx Obesity: Yes (BMI 40) - Additional Comments Anesthesia Medical History Comments: No prior GA. No FHx anesthetic complications.
--- NOTE | 2018-11-05 07:54 | Anesthesia Day of Surgery ---
Anesthesia Day of Surgery - Day of Surgery Patient Examined: Yes Patient H&P Reviewed: Yes Patient is NPO: Yes
[2018-11-05] MEDS ORDERED: VERSED IV NR (08:00)
[2018-11-05] MEDS ORDERED: NEURONTIN PO NR (08:00)
[2018-11-05] MEDS ORDERED: PEPCID IV NR (08:00)
[2018-11-05] MEDS ORDERED: TRANSDERM-SCOP TD NR (08:00)
[2018-11-05] MEDS ORDERED: LACTATED RINGERS 1,000 ML IV SCH (08:00)
[2018-11-05] MEDS ORDERED: SILVER NITRATE TP ONE (08:20)
[2018-11-05] MEDS ORDERED: MARCAINE 0.5% INFILTRATI ONE ×2 (08:20→09:42)
[2018-11-05 08:43] LABS: Basophils % (Auto) 0.8 % (0.0-1.8); Eosinophils # (Auto) 0.1 K/mm3 (0.0-0.4); Eosinophils % (Auto) 1.7 % (0.0-4.3); Hemoglobin 8.9 gm/dl (10.1-14.3); Lymphocytes % (Auto) 35.5 % (13.4-35.0); Mean Corpuscular HGB Conc 32 % (30-34); Monocytes # (Auto) 0.4 K/mm3 (0.0-0.8); Monocytes % (Auto) 7.5 % (0.0-7.3); Platelet Count 311 K/mm3 (140-440); Red Blood Count 4.76 M/mm3 (3.65-5.03)
[2018-11-05 08:44] LABS: Mean Corpuscular Volume 59 fl (79-97); Red Cell Distribution Width 21.5 % (13.2-15.2)
[2018-11-05] MEDS ORDERED: ZOFRAN ONE (09:15)
[2018-11-05] MEDS ORDERED: DECADRON ONE (09:15)
[2018-11-05] MEDS ORDERED: NEO SYNEPHRINE/NS Syringe(OR USE) IV ONE (09:40)
[2018-11-05] MEDS ORDERED: NACL 0.9% IR ONE (09:42)
[2018-11-05] MEDS ORDERED: ROBINUL ONE (10:29)
[2018-11-05] MEDS ORDERED: BLOXIVERZ ONE (10:29)
[2018-11-05] MEDS ORDERED: MIOSTAT ONE (10:51)
--- NOTE | 2018-11-05 10:57 | Operative Report ---
Operative Report Operative Report: Date of procedure: November 05, 2018 Preoperative diagnosis: 1) Chronic Pelvic Pain 2) Right ovarian Dermoid cyst 3) Obesity Postoperative diagnosis: Same 4) Intraabdominal adhesions Procedure: 1) Laparoscopic right oophorectomy 2) Lysis of Omental Adhesions Surgeon: Lisa Moran M.D. Optical Systems Engineer: Yajaira Tracy MD Anesthesia: General endotracheal anesthesia Findings: 1) Right ovary containing 4 cm ovarian cyst containing fat and hair 2) Normal appearing fallopian tubes and left ovary 3) Omental adhesions to the parietal peritoneum 4) Boggy 14 wk sized anteverted uterus Estimated blood loss: minimal Specimens: Right ovary and cyst to pathology Complications: None. Counts correct 2 Disposition: Stable to PACU Indications for procedure: Pt is a 38 year old -Citizen Of [place] female who presents with an one year history of right adnexal mass suspicious for dermoid cyst and chronic pelvic pain for surgical management. Operation in Detail: After the risks, benefits, alternatives and complications of the procedure were explained to the patient, she gave informed consent for the procedure. She was subsequently taken to the operating room with her IV noted to be running and placed in the dorsal supine position with sequential compression devices functioning. General endotracheal anesthesia was then induced without difficulty. The patient was then placed in dorsal lithotomy position and prepped and draped in normal sterile fashion. A timeout was then performed. An exam under anesthesia was then performed yielding an enlarged anteverted uterus. A dorsey catheter was then placed. An open sided speculum was placed into the vagina for visualization of the cervix. A single-tooth tenaculum was placed on the posterior lip of the cervix for traction. A uterine manipulator was placed without difficulty. The speculum and single tooth tenaculum were removed from the vagina. The surgeon's gloves were then changed. Attention was then turned to entry into the abdominal cavity. A 5 mm incision was made 4 cm superior to the umbilicus with an 11 blade. The skin was grasped on either side of the umbilicus with towel clamps and tented up. A Veres needle was placed into the peritoneal cavity, confirmed with a saline drop test. The abdomen was then insufflated with CO2 gas to a pressure of 15 mmHg. A 5 mm Visiport trocar was then placed. An anatomic survey was then performed with findings as indicated above. A 5 mm trocar site was created in the left lower quadrant. The 5 mm trocar was placed under direct visualization. A third trocar site was made in the RLQ. An 12 mm trocar was then placed under direct visualization. The patient was placed in Trendelenburg position. At this time, the right ovarian cyst was noted to be adherent to the ovarian tissue and the decision was made to proceed with oophorectomy. A 5 mm Ligasure was used to excise the right ovary including the cyst. The cyst was then placed in an EndoCatch Bag, partially morcellated, and then removed from the abdominal cavity and sent to pathology. The remaining pedicle was noted to be hemostatic. At this time, all instruments were removed from the abdominal cavity. Hemostasis was noted. A Anil-Noe device with 0 Vicryl was used to reapproximate the 10 mm fascial incision. The pneumoperitoneum was released and all trocars were removed atraumatically. The three skin incisions were then infiltrated with a half percent Marcaine solution. Each incision was then reapproximated with 4-0 Vicryl in a subcuticular fashion, and covered with skin glue. Attention was returned to the vagina. An open-sided speculum was placed in the vagina. The uterine manipulator was removed atraumatically. Silver nitrate was used to obtain hemostasis of the tenaculum puncture sites. At this time, all instruments were removed from the vagina atraumatically. The dorsey catheter was then removed. At this time the procedure was ended. The patient was placed into the dorsal supine position and extubated without difficulty. She tolerated the procedure well and was subsequently taken to the PACU in stable condition. All instrument, needle and lap counts were correct 2.
--- NOTE | 2018-11-05 10:57 | Short Stay Summary ---
Short Stay Documentation Date of service: 11/05/18 - History H&P: dictated Social history: no significant social history - Allergies and Medications Current Medications: Allergies morphine Allergy (Verified 07/18/18 12:58) Rash Home Medications Medication Instructions Recorded Confirmed Last Taken Type Cetirizine HCl [Zyrtec] 10 mg PO DAILY 03/19/13 10/29/18 03/18/13 22:00 History metFORMIN [Glucophage] 850 mg PO QAM 03/19/13 10/29/18 07/17/18 19:00 History Metformin HCl [metFORMIN] 1,000 mg PO QHS 10/29/18 10/29/18 Unknown History Active Medications Celecoxib (Celebrex) 200 mg PO PREOP NR Stop: 11/05/18 20:00 Last Admin: 11/05/18 08:45 Dose: 200 mg Documented by: Famotidine (Pepcid) 20 mg IV ONCE NR Stop: 11/05/18 20:00 Last Admin: 11/05/18 08:47 Dose: 20 mg Documented by: Gabapentin (Neurontin) 300 mg PO PREOP NR Stop: 11/05/18 20:00 Last Admin: 11/05/18 08:46 Dose: 300 mg Documented by: Hydromorphone HCl (Dilaudid) 0.5 mg IV Q10MIN PRN PRN Reason: Pain , Severe (7-10) Stop: 11/05/18 20:00 Sodium Chloride (Nacl 0.9% 1000 Ml) 1,000 mls @ 100 mls/hr IV DIRECT LYN Last Admin: 11/05/18 08:25 Dose: 100 mls/hr Documented by: Cefazolin Sodium 3 gm/ Sodium (Chloride) 100 mls @ 100 mls/30 min IV PREOP NR; Protocol Stop: 11/05/18 23:45 Lactated Ringer's (Lactated Ringers) 1,000 mls @ 100 mls/hr IV DIRECT LYN Midazolam HCl (Versed) 2 mg IV PREOP NR Stop: 11/05/18 23:59 Last Admin: 11/05/18 08:46 Dose: 2 mg Documented by: Scopolamine (Transderm-Scop) 1 each TD PREOP NR Stop: 11/05/18 20:00 Last Admin: 11/05/18 08:45 Dose: 1 each Documented by: - Physical exam Breasts: deferred - Brief post op/procedure progress note Date of procedure: 11/05/18 Pre-op diagnosis: 1) Chronic Pelvic Pain 2) Right Dermoid Cyst 3)Obesity Post-op diagnosis: same Procedure: Laparoscopic right oophorectomy, Lysis of Omental Adhesions Anesthesia: GETA Findings: 1) Right ovary containing 4 cm ovarian cyst containing fat and hair 2) Normal appearing fallopian tubes and left ovary 3) Omental adhesions to the parietal peritoneum 4) Boggy 14 wk sized anteverted uterus Surgeon: BARBARA SANTOS Estimated blood loss: minimal Pathology: list (right ovary and cyst) Specimen disposition: to lab Condition: stable - Hospital course Hospital course: Pt underwent laparoscopic right oophorectomy and lysis of adhesions which she tolerated well. She was observed in the PACU until she met discharge criteria. She will follow up in the office in 2 weeks. - Disposition Condition at discharge: Stable Disposition: [id number] TO HOME OR SELFCARE - Discharge Diagnoses (1) Dermoid cyst of right ovary Status: Acute (2) Diabetes mellitus type 2 in obese Status: Acute (3) Morbid obesity with BMI of 40.0-44.9, adult Status: Acute Short Stay Discharge Plan Activity: other (Nothing in vagina x 4 wks ) Weight Bearing Status: Full Weight Bearing Diet: regular Wound: keep clean and dry Follow up with: NING SALGADO MD [Primary Care Provider] - 7 Days BARBARA SANTOS MD [Staff Physician] - 11/19/18 (Please call to schedule incision check appt ) Prescriptions: Docusate Sodium [Colace] 100 mg PO BID PRN #60 capsule PRN Reason: Constipation Ibuprofen [Motrin] 800 mg PO Q8HR PRN #30 tablet PRN Reason: Pain, Moderate (4-6) oxyCODONE /ACETAMINOPHEN [Percocet 5/325] 1 tab PO Q6HR PRN #40 tablet PRN Reason: Pain
[2018-11-05] MEDS: DILAUDID IV PRN ×2 (11:13→11:25)
[2018-11-05 11:37] VITALS: BP 131/71
[2018-11-05] MEDS ORDERED: PERCOCET 5/325 PO PRN (12:00)
--- NOTE | 2018-11-05 16:37 | Post Anesthesia Evaluation ---
- Post Anesthesia Evaluation Patient Participated: Yes Airway Patent: Yes Stable Respiratory Function: Yes Nausea/Vomiting: No Temp > 96.8F: Yes Pain Manageable: Yes Adequeate Hydration: Yes Anesthesia Complications: No
== END 2018-11-05 12:50 | disposition home or self-care (01) ==
LOC: OR 07:07
PROVIDERS: ATTEND Obstetrics & Gynecology
DX: D27.0 Benign neoplasm of right ovary (principal); K66.0 Peritoneal adhesions (postprocedural) (postinfection); E11.69 Type 2 diabetes mellitus with other specified complication; E66.01 Morbid (severe) obesity due to excess calories; K21.9 Gastro-esophageal reflux disease without esophagitis; F41.9 Anxiety disorder, unspecified; Z83.3 Family history of diabetes mellitus; Z79.899 Other long term (current) drug therapy; Z79.84 Long term (current) use of oral hypoglycemic drugs; Z68.41 Body mass index [BMI] 40.0-44.9, adult; Z86.2 Personal history of diseases of the blood and blood-forming organs and certain disorders involving the immune mechanism
CPT/HCPCS: 36415; 58661; 81025; 82962; 85025; 86850; 86900; 86901; 88305; J0690; J1170; J2250; J2370; J2405; J2704; J2710; J3010; J7030; J1100

== ENCOUNTER 2019-01-08 08:34 | Outpatient (CLI) | payer MEDICAID ==
[2019-01-08 09:30] LABS: Blood Urea Nitrogen 10 mg/dL (7-17)
--- NOTE | 2019-01-08 12:37 | Cat Scan Report ---
CT ABDOMEN AND PELVIS WITH CONTRAST HISTORY: Unspecified abdominal pain. R10.9)other acute postprocedural p COMPARISON: 07/18/2018 TECHNIQUE: Axial CT images were obtained through the abdomen and pelvis after 100 cc of Omnipaque 300 intravenously. Sagittal and coronal reformatted images. All CT scans at this location are performed using CT dose reduction for ALARA by means of automated exposure control. FINDINGS: CT ABDOMEN: Lung Bases: Clear. Liver: No significant abnormality. Biliary: No significant abnormality. Spleen: No significant abnormality. Unenlarged. Pancreas: No significant abnormality. Adrenals: No significant abnormality. Kidneys: No significant abnormality. Lymphatics: No lymphadenopathy. Vasculature: No significant abnormality. Bowel/Peritoneum: No significant abnormality. No free air. No free fluid. The appendix is not confide ntly identified. CT PELVIS: : The previously described right ovarian dermoid is not identified on today's exam. Correlate for h istory of surgical resection. The uterus and left adnexa are unremarkable. Osseous Structures: No significant abnormality. Additional Findings: Small umbilical hernia containing fat is unchanged. IMPRESSION: No acute process is identified in the abdomen or pelvis. Small umbilical hernia containing fat, unchanged. Signer Name: López Campos Jr, MD Signed: 01/08/2019 12:33 PM Workstation Name: [id number]
== END 2019-01-08 08:35 | disposition home or self-care (01) ==
LOC: CT 08:34
PROVIDERS: ATTEND Obstetrics & Gynecology
DX: K42.9 Umbilical hernia without obstruction or gangrene (principal); E66.01 Morbid (severe) obesity due to excess calories; K21.9 Gastro-esophageal reflux disease without esophagitis; E11.9 Type 2 diabetes mellitus without complications
CPT/HCPCS: 36415; 74177; 82565; 84520; Q9967

== ENCOUNTER 2020-05-31 08:31 | Outpatient (CLI) | payer MEDICAID ==
[2020-05-31] MEDS ORDERED: SINCALIDE 5 MCG VIAL IV ONE ×2 (10:00→10:06)
--- NOTE | 2020-05-31 11:03 | Nuclear Medicine Report ---
Nuclear medicine HIDA scan INDICATION: Right upper quadrant pain TECHNIQUE: 5.5 millicuries of technetium 99 mebrofenin was injected IV per protocol. 2.3 mcg of CCK injected IV per protocol Multiple planar images in the region of the liver were then obtained. FINDINGS: There is prompt radiotracer uptake identified within the liver. The gallbladder was visuali zed at 20 minutes in the small bowel is identified at 30 minutes. The gallbladder ejection fraction w as measured at 15 %. IMPRESSION: 1. No evidence of biliary obstruction. 2. Low gallbladder ejection fraction of 15%. Injection of CCK reproduced patient's symptoms. Signer Name: Ronni Beckman MD Signed: 05/31/2020 10:59 AM Workstation Name: [id number]
== END 2020-05-31 08:32 | disposition home or self-care (01) ==
LOC: NM 08:31
PROVIDERS: ATTEND Internal Medicine Gastroenterology
DX: R10.13 Epigastric pain (principal)
CPT/HCPCS: 78227; A9537; J2805

== ENCOUNTER 2020-10-06 11:09 | Emergency (ER) | payer MEDICAID ==
[2020-10-06 12:05] VITALS: BP 123/83
--- NOTE | 2020-10-06 13:16 | Emergency Department Report ---
ED Female HPI - General Chief complaint: Vaginal Bleeding Stated complaint: ABD/PERIOD LASTING 2 WEEKS/PAIN Time Seen by Provider: 10/06/20 12:41 Source: patient Mode of arrival: Ambulatory Limitations: No Limitations - History of Present Illness Initial comments: Patient is a 40-year-old female presents emergency room with complaints of vaginal bleeding for 2 weeks. She states that she has been passing clots. She states that she is having to only change her pad approximately 5 times a day. She has associated lower abdominal pain. Patient states that she last saw her SCREENING SPECIALIST in August but was not having these issues at that time. She states that she has an upcoming appointment with her [facility] at [facility]. She states typically her cycles last approximately 4 to 5 days. She states that she had a pelvic ultrasound performed by her [facility] [employer] in May and states that it was normal. She denies any control use. She denies any fever, nausea, vomiting, diarrhea, dysuria, abnormal vaginal discharge. Past medical history of anemia and stomach ulcers. She has never had to be transfused. She has an allergy to morphine. She reports that in 2017 she had her right tube and ovary removed secondary to an ovarian cyst. - Related Data Home Medications Medication Instructions Recorded Confirmed Last Taken Cetirizine HCl [Zyrtec] 10 mg PO DAILY 03/19/13 10/29/18 03/18/13 22:00 metFORMIN [Glucophage] 850 mg PO QAM 03/19/13 10/29/18 07/17/18 19:00 Metformin HCl [metFORMIN] 1,000 mg PO QHS 10/29/18 10/29/18 Unknown Previous Rx's Medication Instructions Recorded Last Taken Type Docusate Sodium [Colace] 100 mg PO BID PRN #60 capsule 11/05/18 Unknown Rx Ibuprofen [Motrin] 800 mg PO Q8HR PRN #30 tablet 11/05/18 Unknown Rx oxyCODONE /ACETAMINOPHEN [Percocet 1 tab PO Q6HR PRN #40 tablet 11/05/18 Unknown Rx 5/325] Naproxen [EC-Naprosyn] 375 mg PO BID PRN #20 tablet. 10/06/20 Unknown Rx medroxyPROGESTERone ACETATE 10 mg PO QDAY 10 Days #10 tablet 10/06/20 Unknown Rx [Provera] traMADoL [Ultram 50 MG tab] 50 mg PO Q6HR PRN #10 tablet 10/06/20 Unknown Rx Allergies Allergy/AdvReac Type Severity Reaction Status Date / Time morphine Allergy Rash Verified 07/18/18 12:58 ED Review of Systems ROS: Stated complaint: ABD/PERIOD LASTING 2 WEEKS/PAIN Other details as noted in HPI Comment: All other systems reviewed and negative ED Past Medical Hx - Past Medical History Previous Medical History?: Yes Hx Hypertension: No Hx Heart Attack/AMI: No Hx Diabetes: Yes Hx GERD: Yes Hx Liver Disease: No Hx Renal Disease: No Hx Tuberculosis: Yes (POSITIVE SKIN TEST,NO TX , NEG CXR-2004) Hx HIV: No - Surgical History Past Surgical History?: Yes Additional Surgical History: x 3 - Social History Smoking Status: Never Smoker - Medications Home Medications: Home Medications Medication Instructions Recorded Confirmed Last Taken Type Cetirizine HCl [Zyrtec] 10 mg PO DAILY 03/19/13 10/29/18 03/18/13 22:00 History metFORMIN [Glucophage] 850 mg PO QAM 03/19/13 10/29/18 07/17/18 19:00 History Metformin HCl [metFORMIN] 1,000 mg PO QHS 10/29/18 10/29/18 Unknown History Docusate Sodium [Colace] 100 mg PO BID PRN #60 capsule 11/05/18 Unknown Rx Ibuprofen [Motrin] 800 mg PO Q8HR PRN #30 tablet 11/05/18 Unknown Rx oxyCODONE /ACETAMINOPHEN [Percocet 1 tab PO Q6HR PRN #40 tablet 11/05/18 Unkno wn Rx 5/325] Naproxen [EC-Naprosyn] 375 mg PO BID PRN #20 tablet.dr 10/06/20 Unknown Rx medroxyPROGESTERone ACETATE 10 mg PO QDAY 10 Days #10 tablet 10/06/20 Unknown Rx [Provera] traMADoL [Ultram 50 MG tab] 50 mg PO Q6HR PRN #10 tablet 10/06/20 Unknown Rx ED Physical Exam - General Limitations: No Limitations General appearance: alert, in no apparent distress - Head Head exam: Present: atraumatic, normocephalic - Eye Eye exam: Present: normal appearance - ENT ENT exam: Present: mucous membranes moist - Respiratory Respiratory exam: Present: normal lung sounds bilaterally. Absent: respiratory distress, wheezes, rales, rhonchi, stridor, chest wall tenderness, accessory muscle use, decreased breath sounds, prolonged expiratory - Cardiovascular Cardiovascular Exam: Present: regular rate, normal rhythm, normal heart sounds. Absent: systolic murmur, diastolic murmur, rubs, gallop - GI/Abdominal GI/Abdominal exam: Present: soft, tenderness (mild generalized lower abd), normal bowel sounds. Absent: distended, guarding, rebound, rigid - Neurological Exam Neurological exam: Present: alert, oriented X3 - Psychiatric Psychiatric exam: Present: normal affect, normal mood - Skin Skin exam: Present: warm, dry, intact ED Course Vital Signs 10/06/20 12:02 Temperature 98.2 F Pulse Rate 67 Respiratory 18 Rate Blood Pressure 123/83 [Right] O2 Sat by Pulse 100 Oximetry ED Medical Decision Making - Lab Data Result diagrams: 10/06/20 13:15 10/06/20 13:15 Lab Results 10/06/20 10/06/20 10/06/20 Range/Units 13:15 13:15 13:15 WBC 6.8 (4.5-11.0) K/mm3 RBC 4.38 (3.65-5.03) M/mm3 Hgb 9.5 L (10.1-14.3) gm/dl Hct 29.1 L (30.3-42.9) % MCV 67 L (79-97) fl MCH 22 L (28-32) pg MCHC 33 (30-34) % RDW 19.7 H (13.2-15.2) % Plt Count 266 (140-440) K/mm3 Lymph % (Auto) 34.1 (13.4-35.0) % [place] % (Auto) 7.1 (0.0-7.3) % Eos % (Auto) 2.6 (0.0-4.3) % Baso % (Auto) 1.1 (0.0-1.8) % Lymph # (Auto) 2.3 (1.2-5.4) K/mm3 [place] # (Auto) 0.5 (0.0-0.8) K/mm3 Eos # (Auto) 0.2 (0.0-0.4) K/mm3 Baso # (Auto) 0.1 (0.0-0.1) K/mm3 Seg Neutrophils % 55.1 (40.0-70.0) % Seg Neutrophils # 3.7 (1.8-7.7) K/mm3 Sodium 137 (137-145) mmol/L Potassium 4.1 (3.6-5.0) mmol/L Chloride 99.6 (98-107) mmol/L Carbon Dioxide 29 (22-30) mmol/L Anion Gap 13 mmol/L BUN 11 (7-17) mg/dL Creatinine 0.6 (0.6-1.2) mg/dL Estimated GFR > 60 ml/min BUN/Creatinine Ratio 18 % Glucose 93 (65-100) mg/dL Calcium 8.9 (8.4-10.2) mg/dL Total Bilirubin 0.40 (0.1-1.2) mg/dL AST 14 (5-40) units/L ALT 8 (7-56) units/L Alkaline Phosphatase 83 (35-129) units/L Total Protein 7.6 (6.3-8.2) g/dL Albumin 4.4 (3.9-5) g/dL Albumin/Globulin Ratio 1.4 % HCG, Qual Negative (Negative) Urine Color (Yellow) Urine Turbidity (Clear) Urine pH (5.0-7.0) Ur Specific [place] (1.003-1.030) Urine Protein (Negative) mg/dL Urine Glucose (UA) (Negative) mg/dL Urine Ketones (Negative) mg/dL Urine Blood (Negative) Urine Nitrite (Negative) Urine Bilirubin (Negative) Urine Urobilinogen (<2.0) mg/dL Ur Leukocyte Esterase (Negative) Urine WBC (Auto) (0.0-6.0) /HPF Urine RBC (Auto) (0.0-6.0) /HPF 10/06/20 Range/Units 13:31 WBC (4.5-11.0) K/mm3 RBC (3.65-5.03) M/mm3 Hgb (10.1-14.3) gm/dl Hct (30.3-42.9) % MCV (79-97) fl MCH (28-32) pg MCHC (30-34) % RDW (13.2-15.2) % Plt Count (140-440) K/mm3 Lymph % (Auto) (13.4-35.0) % [place] % (Auto) (0.0-7.3) % Eos % (Auto) (0.0-4.3) % Baso % (Auto) (0.0-1.8) % Lymph # (Auto) (1.2-5.4) K/mm3 [place] # (Auto) (0.0-0.8) K/mm3 Eos # (Auto) (0.0-0.4) K/mm3 Baso # (Auto) (0.0-0.1) K/mm3 Seg Neutrophils % (40.0-70.0) % Seg Neutrophils # (1.8-7.7) K/mm3 Sodium (137-145) mmol/L Potassium (3.6-5.0) mmol/L Chloride (98-107) mmol/L Carbon Dioxide (22-30) mmol/L Anion Gap mmol/L BUN (7-17) mg/dL Creatinine (0.6-1.2) mg/dL Estimated GFR ml/min BUN/Creatinine Ratio % Glucose (65-100) mg/dL Calcium (8.4-10.2) mg/dL Total Bilirubin (0.1-1.2) mg/dL AST (5-40) units/L ALT (7-56) units/L Alkaline Phosphatase (35-129) units/L Total Protein (6.3-8.2) g/dL Albumin (3.9-5) g/dL Albumin/Globulin Ratio % HCG, Qual (Negative) Urine Color Red (Yellow) Urine Turbidity Cloudy (Clear) Urine pH 7.0 (5.0-7.0) Ur Specific [place] 1.016 (1.003-1.030) Urine Protein 100 mg/dl (Negative) mg/dL Urine Glucose (UA) Neg (Negative) mg/dL Urine Ketones Neg (Negative) mg/dL Urine Blood Lg (Negative) Urine Nitrite Neg (Negative) Urine Bilirubin Neg (Negative) Urine Urobilinogen < 2.0 (<2.0) mg/dL Ur Leukocyte Esterase Neg (Negative) Urine WBC (Auto) 0.0 (0.0-6.0) /HPF Urine RBC (Auto) > 182.0 (0.0-6.0) /HPF - Medical Decision Making Patient is a 40-year-old female presents emergency room with complaints of vaginal bleeding for 2 weeks. She states that she has been passing clots. She states that she is having to only change her pad approximately 5 times a day. She has associated lower abdominal pain. Patient states that she last saw her SCREENING SPECIALIST in August but was not having these issues at that time. She states that she has an upcoming appointment with her [facility] at [facility]. She states typically her cycles last approximately 4 to 5 days. She states that she had a pelvic ultrasound performed by her [facility] [employer] in May and states that it was normal. She denies any control use. She denies any fever, nausea, vomiting, diarrhea, dysuria, abnormal vaginal discharge. Past medical history of anemia and stomach ulcers. She has never had to be transfused. She has an allergy to morphine. She reports that in 2018 she had her right tube and ovary removed secondary to an ovarian cyst. Vitals are normal. On exam patient has mild generalized lower abdominal tenderness to palpation, no guarding, no rebound, no rigidity, normal sounds, no peritoneal signs. Labs with stable anemia, has improved since her last H&H. hCG is negative. UA without evidence of UTI. Patient does not have any contraindications to Provera. Patient given prescription for Provera, naproxen, tramadol. Discussed in detail with patient the importance of [facility]AL [employer] follow-up. Discussed very strict return precautions in detail with patient. Advised to return for new or worsening symptoms or if bleeding through more than 2 or 3 pads an hour. She verbalized understanding. advised pt Please take medication as prescribed. Do not drive or operate machinery while taking severe pain medication. Increase your fluid intake. Follow-up with your primary care doctor. Follow-up with your [facility] [employer]. Return to emergency room for any new or worsening symptoms. Critical care attestation.: If time is entered above; I have spent that time in minutes in the direct care of this critically ill patient, excluding procedure time. ED Disposition Clinical Impression: Dysmenorrhea, Microcytic anemia Menorrhagia Qualifiers: Menorrhagia type: with irregular cycle Qualified Code(s): N92.1 - Excessive and frequent menstruation with irregular cycle Abdominal pain Qualifiers: Abdominal location: lower abdomen, unspecified Qualified Code(s): R10.30 - Lower abdominal pain, unspecified Disposition: TO HOME OR SELFCARE Is pt being admited?: No Does the pt Need Aspirin: No Condition: Stable Instructions: Abnormal Uterine Bleeding, Menorrhagia, [id number], Dysmenorrhea, [id number] Additional Instructions: Please take medication as prescribed. Do not drive or operate machinery while taking severe pain medication. Increase your fluid intake. Follow-up with your primary care doctor. Follow-up with your [facility] [employer]. Return to emergency room for any new or worsening symptoms. Prescriptions: Naproxen [EC-Naprosyn] 375 mg PO BID PRN #20 tablet. PRN Reason: pain medroxyPROGESTERone ACETATE [Provera] 10 mg PO QDAY 10 Days #10 tablet traMADoL [Ultram 50 MG tab] 50 mg PO Q6HR PRN #10 tablet PRN Reason: Pain , Severe (7-10) Referrals: CARMEN VELEZ MD [Primary Care Provider] - 2-3 Days [facility] [Provider Group] - 2-3 Days Time of Disposition: 14:32 Print Language: SWEDISH
[2020-10-06 13:41] LABS: Basophils # (Auto) 0.1 K/mm3 (0.0-0.1); Basophils % (Auto) 1.1 % (0.0-1.8); Eosinophils # (Auto) 0.2 K/mm3 (0.0-0.4); Eosinophils % (Auto) 2.6 % (0.0-4.3); Hematocrit 29.1 % (30.3-42.9); Hemoglobin 9.5 gm/dl (10.1-14.3); Lymphocytes # (Auto) 2.3 K/mm3 (1.2-5.4); Lymphocytes % (Auto) 34.1 % (13.4-35.0); Mean Corpuscular HGB Conc 33 % (30-34); Monocytes # (Auto) 0.5 K/mm3 (0.0-0.8); Monocytes % (Auto) 7.1 % (0.0-7.3); Platelet Count 266 K/mm3 (140-440); Red Blood Count 4.38 M/mm3 (3.65-5.03); Red Cell Distribution Width 19.7 % (13.2-15.2)
[2020-10-06 13:42] LABS: Mean Corpuscular Volume 67 fl (79-97)
[2020-10-06 13:57] LABS: Bilirubin,Urine NEG (Negative); Blood,Urine LG (Negative); Color,Urine Red (Yellow); Urobilinogen,Urine < 2.0 mg/dL (<2.0)
[2020-10-06 14:02] LABS: Alanine Aminotransferase 8 units/L (7-56); Albumin 4.4 g/dL (3.9-5); Blood Urea Nitrogen 11 mg/dL (7-17); Calcium 8.9 mg/dL (8.4-10.2); Hemolysis Index 6
[2020-10-06 14:05] LABS: RBC,Urine > 182.0 /HPF (0.0-6.0)
[2020-10-06 14:24] LABS: BUN/Creatinine Ratio 18
== END 2020-10-06 14:51 | disposition home or self-care (01) ==
LOC: ED 11:09
DX: N92.0 Excessive and frequent menstruation with regular cycle (principal); N94.6 Dysmenorrhea, unspecified; D50.9 Iron deficiency anemia, unspecified; R10.30 Lower abdominal pain, unspecified; E11.9 Type 2 diabetes mellitus without complications; K21.9 Gastro-esophageal reflux disease without esophagitis; Z98.890 Other specified postprocedural states; Z79.899 Other long term (current) drug therapy; Z88.8 Allergy status to other drugs, medicaments and biological substances
CPT/HCPCS: 36415; 80053; 81001; 84703; 85025